=== PATIENT | male | born 1980 | race American Indian/Alaskan Native ===

== ENCOUNTER 2016-12-12 08:14 | Emergency (ER) | payer OTHER ==
[~2016-12-12] VITALS: Ht 190.5 cm; Wt 91.1 kg
[2016-12-12] MEDS ORDERED: LIDODERM 5% P1 PATCH TD (09:50)
[2016-12-12] MEDS ORDERED: NAPROSYN500 MG PO (09:50)
[2016-12-12] MEDS ORDERED: FLEXERIL10 MG PO (09:50)
[2016-12-12 10:45] VITALS: BP 126/71
== END 2016-12-12 10:46 | disposition home or self-care (01) ==
LOC: EME 08:14
DX: S16.1XXA Strain of muscle, fascia and tendon at neck level, initial encounter (principal); V48.5XXA Car driver injured in noncollision transport accident in traffic accident, initial encounter; Y92.410 Unspecified street and highway as the place of occurrence of the external cause; M54.5 Low back pain; M25.522 Pain in left elbow; F17.200 Nicotine dependence, unspecified, uncomplicated
CPT/HCPCS: 99281; 99284; J1885